=== PATIENT | male | born 1990 | race Caucasian/White ===

== ENCOUNTER 2021-05-04 10:34 | Emergency (ER) | payer SELFPAY ==
[~2021-05-04] VITALS: Ht 175.3 cm; Wt 99.8 kg
== END 2021-05-04 14:56 | disposition home or self-care (01) ==
LOC: ER 10:34
DX: S06.9X9A Unspecified intracranial injury with loss of consciousness of unspecified duration, initial encounter (principal); F17.200 Nicotine dependence, unspecified, uncomplicated; F19.129 Other psychoactive substance abuse with intoxication, unspecified; R00.0 Tachycardia, unspecified; S46.812A Strain of other muscles, fascia and tendons at shoulder and upper arm level, left arm, initial encounter; S00.83XA Contusion of other part of head, initial encounter; R40.2362 Coma scale, best motor response, obeys commands, at arrival to emergency department; R40.2142 Coma scale, eyes open, spontaneous, at arrival to emergency department; R40.2252 Coma scale, best verbal response, oriented, at arrival to emergency department; W18.30XA Fall on same level, unspecified, initial encounter
CPT/HCPCS: 70450; 93005; 93010; 96374; 99284-25; A9270; J1885; J7030